=== PATIENT | female | born 2000 | race African-American/Black ===

== ENCOUNTER → 2024-03-22 02:58 | Emergency (ER) | payer MEDICAID ==
[~2024-03-22] VITALS: Ht 177.8 cm; Wt 63.5 kg
[2024-03-22 02:58] VITALS: BP 108/68; PULSE 61; RESP 17; TEMP 97.7; O2SAT 99
[2024-03-22 04:30] VITALS: BP 108/68; PULSE 61; RESP 17; TEMP 97.7; O2SAT 99
== END | disposition home or self-care (01) ==
LOC: MED 02:58
DX: R10.84 Generalized abdominal pain (principal); Z00.8 Encounter for other general examination
CPT/HCPCS: 99283